=== PATIENT | female | born 2005 | race Caucasian/White ===

== ENCOUNTER 2025-05-30 16:08 | Emergency (ER) | payer OTHER, SELFPAY ==
[2025-05-30 16:15] VITALS: BP 107/73; PULSE 98; RESP 16; TEMP 36.8; O2SAT 100
--- NOTE | 2025-05-30 17:06 | ED.NAVMDI ---
HPI - Nausea/Vomiting/Diarrhea General Chief complaint: Nausea/Vomiting/Diarrhea Stated complaint: VOMITING Time Seen by Provider: 05/30/25 16:50 Source: patient and RN notes reviewed Mode of arrival: ambulatory Limitations: no limitations History of Present Illness HPI Narrative: 19-year-old female Presents Express Care complaining of nausea, vomiting, since last night. Patient reports having abdominal cramping. Patient denies any abdominal pain, fevers, body aches, chills. Patient last vomited approximately 7 hours ago. Patient has been able to keep fluids down since vomiting. Patient has not tried any [id number] for relief. Patient denies recent travel outside the country. Patient denies any alcohol use. Related Data Home Medications ?Medication ?Instructions ?Recorded ?Confirmed ?Last Taken ?Type norgestimate 0.18 mg/0.215mg/0.25 tablet 05/30/25 Unknown History mg-ethinyl estradiol 0.025 mg tablet (Tri-Lo-Juliette) Allergies Allergy/AdvReac Type Severity Reaction Status Date / Time No Known Allergies Allergy Verified 05/30/25 16:21 Review of Systems Review of Systems: CONSTITUTIONAL: Denies fever, chills, body aches, or sweats. EYES: Denies visual changes, redness, or discharge. ENT: Denies rhinorrhea, congestion, sore throat, or otalgia. CARDIOVASCULAR: Denies chest pain, palpitations, or edema. RESPIRATORY: Denies cough or dyspnea. GASTROINTESTINAL: Denies abdominal pain, bloody stools, diarrhea, hematochezia. Positive for nausea, vomiting GENITOURINARY: Denies dysuria or hematuria. SKIN: Denies rash or itching. MUSCULOSKELETAL: Denies back pain, joint pain, or myalgia. NEUROLOGIC: Denies headache, numbness, or weakness. PSYCHIATRIC: Denies anxiety or depression. All other systems reviewed are negative, except as documented in HPI. Exam Narrative: GENERAL: This is a well-nourished, well-developed adult, in no apparent distress. They are non ill-appearing, nontoxic appearing. HEAD: normocephalic, atraumatic. EYES: Sclera clear/white. Vision is grossly intact. Conjunctiva normal bilaterally. Extraocular movements intact. EARS: External ears normal, Hearing grossly intact. NOSE: External nose normal THROAT: Mucous membranes moist NECK: Normal range of motion CARDIOVASCULAR: Regular rate and rhythm RESPIRATORY: Respiratory rate normal, respiratory effort nonlabored, no respiratory distress GASTROINTESTINAL: Abdomen soft, flat, non-tender, nondistended. Bowel sounds are active. No hepato-splenomegaly, or palpable masses. No guarding or rigidity. No rebound tenderness. SKIN: warm, Dry, intact with no suspicious lesions or rash, good texture and turgor. NEURO: awake, alert, and oriented to person, place and time. There were no obvious focal neurologic abnormalities. EXTREMITIES: No joint tenderness, effusion, or edema noted. BACK: Nontender without deformity. No CVA tenderness. Course Course Level of Care: Express Care Visit Vital Signs Vital signs: Vital Signs Temperature 98.2 F 05/30/25 16:15 Pulse Rate 98 05/30/25 16:15 Respiratory Rate 16 05/30/25 16:15 Blood Pressure 107/73 05/30/25 16:15 Pulse Oximetry 100 05/30/25 16:15 Oxygen Delivery Room Air 05/30/25 16:15 Temperature 98.2 F 05/30/25 16:15 Pulse Rate 98 05/30/25 16:15 Respiratory Rate 16 05/30/25 16:15 Blood Pressure 107/73 05/30/25 16:15 Pulse Oximetry 100 05/30/25 16:15 Oxygen Delivery Room Air 05/30/25 16:15 [facility] MDM Narrative Medical decision making narrative: Patient likely has a gastroenteritis. Will give her Zofran as needed for nausea vomiting. Patient does not appear clinically dehydrated, moist mucous membranes, no tachycardia. Patient is afebrile nontoxic appearing, no apparent distress. No abdominal tenderness, no peritoneal findings on exam. Patient able to keep fluids down since she vomited this morning. Differential Diagnosis Differential Diagnosis: Gastroenteritis, small-bowel obstruction, drug-induced vomiting Discharge Plan Discharge Clinical Impression: Gastroenteritis Patient Disposition: Home Condition: Stable Instructions: Gastroenteritis (ED) Additional Instructions: It is likely have a viral gastroenteritis. This is normally a self-limiting condition or resolve within 24-72 hours. Recommend hydration with plenty of fluids electrolyte supplementation such as Pedialyte. Follow-up PCP in 3-5 days. You may take Zofran as needed for nausea or vomiting. If Your unable to keep anything down, you developed abdominal pain, fevers, uncontrollable diarrhea, concerns of dehydration, or any other concerns please go to the ER immediately. Patient Language: Khmer Prescriptions: New ondansetron 4 mg tablet,disintegrating 4 mg PO Q8H PRN (Reason: nausea and vomiting) Qty: 12 0RF No Action norgestimate-ethinyl estradiol [Tri-Lo-Juliette] 0.18/0.215/0.25 mg-0.025 mg tablet Follow-up/Referrals: UNKNOWN,DOCTOR [Primary Care Provider] Stand Alone Forms: Work/School Release IP Time of Disposition: 17:04
== END 2025-05-30 17:08 | disposition home or self-care (01) ==
DX: K52.9 Noninfective gastroenteritis and colitis, unspecified (principal)
CPT/HCPCS: 99213; G0463